=== PATIENT | female | born 1970 | race Two or more races ===

== ENCOUNTER → 2025-06-15 | Outpatient (CLI) | payer MEDICAID, SELFPAY ==
--- NOTE | 2025-06-15 12:00 | XR_ITS ---
Examination: MRI abdomen with intravenous contrast. MRI abdomen without intravenous contrast. Date and time of exam: June 15, 2025, 12:16 p.m., comparison MRI abdomen without contrast January 27, 2023 INDICATIONS: Diagnosis chronic pancreatitis, noninfective gastroenteritis, colitis, hepatomegaly 18 cm on MR abdomen study January 27, 2023 Technique: Multiple axial, sagittal and coronal sections of the abdomen obtained. Transverse images, TR 6020, TE 107. T1 weighted transverse images, TR 582, TE 9.5. T2-weighted sagittal images, TR 4000, TE 105. T2-weighted sagittal images, TR 4000, TE 5. Coronal images, TR 4210, TE 107. Axial and coronal images are obtained post 20 cc intravenous injection, gadolinium. Findings: Hepatomegaly 17 cm Precontrast images demonstrate no focal liver lesions Postcontrast images demonstrate no abnormal enhancing liver lesion Spleen is not enlarged Gallbladder is not visualized Common hepatic duct 6 mm common bile duct 4 mm no common hepatic or common bile duct stones No current pancreatitis, no dilated pancreatic duct No ascites No hydronephrosis Aorta normal size IMPRESSION: Hepatomegaly 17 cm no liver lesions Negative for splenomegaly No common hepatic or common bile duct stones No current pancreatitis
== END | disposition home or self-care (01) ==
PROVIDERS: PCP Family Medicine; Referring Provider Internal Medicine Gastroenterology; Visit Provider Internal Medicine Gastroenterology
DX: R16.0 Hepatomegaly, not elsewhere classified (principal); K86.1 Other chronic pancreatitis; Z71.6 Tobacco abuse counseling
CPT/HCPCS: 74183; A9577